=== PATIENT | female | born 1955 | race Caucasian/White ===

== ENCOUNTER 2016-05-19 18:20 | Emergency (ER) | payer OTHER ==
--- NOTE | ~2016-05-19 | CR93 ---
[facility]. [facility] A [facility] RADIOLOGY TEXT RESULTS PATIENT: JUANPABLO SCHNEIDER LOCATION: SED : 51 UNIT #: [id number] AGE: [address]: Kayla Carrera APRN SEX: F ORDER DR: [id number] [place] [id number] E MR#: [id number] Acc #: [id number] NAME: JUANPABLO SCHNEIDER : 1955 SEX: F STUDY DATE/TIME: 05/19/2016 18:14 UNIT: SED ROOM: STUDY DESCRIPTION: CR Elbow Min 3 Views Lt Attending Physician: Kayla Carrera A.P.R.N. Ordering Physician: Kayla Still A.P.R.N. Primary Care Physician: Edgardo Hess M.D. MEDICAL IMAGING REPORT This report is preliminary unless electronic signature is present. EXAM Three views left elbow, 05/19/16 HISTORY Lateral elbow pain after hitting it along the back of a chair yesterday. COMMENT 3 views of the left elbow are reviewed. No comparison. FINDINGS No joint effusion. No dislocation. There is probably as osteophyte t the coracoid process, but no definite acute fracture, dislocation or radiopaque foreign body. IMPRESSION There appears to be osteophyte formation at the coracoid process consistent with some degenerative change, but no joint effusion is seen. Therefore, no convincing evidence for acute fracture. No dislocation or radiopaque foreign body. Dictated by... Nohemi Walters M.D. THIS IS AN ELECTRONICALLY VERIFIED REPORT Nohemi Walters M.D. at 05/19/2016 11:13 PM ANDI/kristina [facility] RADIOLOGY TEXT RESULTS PATIENT: JUANPABLO SCHNEIDER LOCATION: SED : 51 UNIT #: [id number] AGE: [address]: Kayla Carrera APRN SEX: F ORDER DR: TD: 05/19/2016 22:34 JOB #: [id number] MEDICAL IMAGING REPORT Page 1 of 1
[~2016-05-19 18:20] MED LIST: ALEVE; AMARYL; AMARYL2 MG PO; ANEXSIA 7.5/3251 TA1 PO; CEFDINIR300 MG PO; CLARITIN10 M2 PO; JANUMET 50-1,1 UDTAB PO; JANUVIA PO; LISINOPRIL-HCTZ1 T14 PO; LISINOPRIL-HCTZ1 T15 PO; LISINOPRIL-HCTZ1 T18 PO; LISINOPRIL-HCTZ1 T19 PO; METFORMIN; NABUMETONE500 M1 PO; OMEPRAZOLE20 M1 PO; ONDANSETRON HCL4 MG PO; PEPCID AC20 MG PO; SYNTHROID; SYNTHROID PO; SYNTHROID112 MCG PO; TIZANIDINE HCL4 M1 PO; TUMS500 MG PO; VICTOZA0.6 MG/0.1 SQ; VITAMIN D 4001 UDTAB PO; ZESTORETIC 10/11 TAB
== END 2016-05-19 19:22 | disposition home or self-care (01) ==
LOC: SED 18:20
DX: S50.02XA Contusion of left elbow, initial encounter (principal); I10 Essential (primary) hypertension; E11.9 Type 2 diabetes mellitus without complications; E03.9 Hypothyroidism, unspecified; X58.XXXA Exposure to other specified factors, initial encounter; Y92.89 Other specified places as the place of occurrence of the external cause
CPT/HCPCS: 29260; 73080; 99283